=== PATIENT | female | born 1975 | race Caucasian/White ===

== ENCOUNTER → 2019-10-09 | Outpatient (CLI) | payer OTHER ==
[~2019-10-09] MED LIST: ESCI10 PO; HYDMOR2 PO; IBUP600 PO; LEVFLO500 PO; MEDR150I IM; METO10 PO; OXYACE5T PO; OXYC5 PO; PROM25S PR; RXHYDMOR2 PO; RXOXYACE PO; RXPROM25 PO; SERT100 PO; TAMS.4ER PO; TRAZ100 PO
== END | disposition home or self-care (01) ==
LOC: LAB 10:23 → LAB SHORT 10:23
DX: M54.5 Low back pain (principal)
CPT/HCPCS: 87086

== ENCOUNTER → 2020-01-01 | Outpatient (CLI) | payer OTHER | LOC: LAB 11:25 → LAB SHORT 11:25 | DX: R30.0 Dysuria (principal) | CPT/HCPCS: 87077; 87086; 87186 ==

== ENCOUNTER 2022-12-27 00:58 | Day surgery (SDC) | payer OTHER ==
[~2022-12-27 00:58] MED LIST changes: +AMBIEN10 MG PO; +LATUDA80 M1 PO
[2022-12-27 10:26] VITALS: BP 113/63
== END 2022-12-27 11:19 | disposition home or self-care (01) ==
LOC: ATC 00:58
DX: D50.9 Iron deficiency anemia, unspecified (principal); Z98.84 Bariatric surgery status
CPT/HCPCS: 96365; J2916

== ENCOUNTER 2023-01-03 02:46 | Day surgery (SDC) | payer OTHER ==
[2023-01-03 10:13] VITALS: BP 110/65
== END 2023-01-03 11:17 | disposition home or self-care (01) ==
LOC: ATC 02:46
DX: D50.8 Other iron deficiency anemias (principal); Z98.84 Bariatric surgery status
CPT/HCPCS: 96365; J2916

== ENCOUNTER 2023-03-10 18:28 | Inpatient (IN) | payer OTHER ==
[~2023-03-10] VITALS: Ht 170.2 cm; Wt 95.9 kg
[~2023-03-10 18:28] MED LIST changes: -Budeprion Xl300 MG PO; -ONDA4 PO
[2023-03-10] MEDS ORDERED: Budeprion Xl300 MG PO (18:36)
[2023-03-10 19:09] LABS: BASOPHILS ABSOLUTE AUTO 0.01 K/mm3 (0.00-0.23); BASOPHILS PERCENT AUTO 0 % (0-2); EOSINOPHILS ABSOLUTE AUTO 0.01 K/mm3 (0.00-0.68); EOSINOPHILS PERCENT AUTO 0 % (0-6); Hematocrit 35.1 % (33.0-51.0); Hemoglobin 11.1 g/dL (11.5-16.0); IMMATURE GRAN ABSOLUTE AUTO 0.02 K/mm3 (0.00-0.10); IMMATURE GRAN PERCENT AUTO 0 % (0-1); LYMPHOCYTES ABSOLUTE AUTO 1.58 K/mm3 (0.84-5.20); LYMPHOCYTES PERCENT AUTO 15 % (21-46); MONOCYTES ABSOLUTE AUTO 1.17 K/mm3 (0.16-1.47); MONOCYTES PERCENT AUTO 11 % (4-13); Mean Corpuscular HGB 25.4 pg (26.0-34.0); Mean Corpuscular HGB Conc 31.6 g/dL (31.5-36.5); Mean Corpuscular Volume 80 fL (80-100); Mean Platelet Volume 10.2 fL (9.1-12.4); NEUTROPHILS ABSOLUTE AUTO 7.64 K/mm3 (1.96-9.15); NEUTROPHILS PERCENT AUTO 73 % (41-73); Platelet Count 308 K/mm3 (150-400); RDW Coefficient Variation 21.3 % (11.7-14.2); RDW Standard Deviation 62.2 fL (35.1-46.3); Red Blood Cell Count 4.37 M/mm3 (3.80-5.20); White Blood Cell Count 10.43 K/mm3 (4.00-11.30)
[2023-03-10 19:13] LABS: Albumin, Blood 2.6 g/dL (3.4-5.0); Albumin/Globulin Ratio 0.8 (0.8-1.8); Bilirubin, Total 0.4 mg/dL (0.1-1.0); Bun/Creatinine Ratio 21.7 (12.0-20.0); Calcium, Blood 8.5 mg/dL (8.5-10.1); Creatinine, Blood 0.6 mg/dL (0.40-1.00); Globulin, Blood 3.3 g/dL (2.2-4.0); Potassium, Blood 3.8 mmol/L (3.5-5.5); Total Protein, Blood 5.9 g/dL (6.4-8.2)
[2023-03-10 19:15] LABS: Source, Urine Clean Catch
[2023-03-10 19:31] LABS: Appearance, Urine Hazy (Clear); Blood, Urine 4+ (Neg); Color, Urine Yellow (P-Yellow); Glucose Qualitative, Urine Neg (Neg); Ketones, Urine Neg (Neg); Leukocyte Esterase, Urine 1+ (Neg); Nitrite, Urine Neg (Neg); Protein, Urine 2+ (Neg); Urobilinogen, Urine 1+ (Normal)
[2023-03-10 19:43] LABS: Bilirubin, Urine 1+ (Neg)
[2023-03-10 19:46] LABS: Amorphous Light (0-Heavy); Bacteria Many /hpf; Mucus Heavy (0-Heavy); Red Blood Cells, Urine 0-2 /hpf (0-2); Squamous Epithelial Cells Many /hpf (Few)
[2023-03-10 19:47] LABS: Calcium Oxalate Crystals Many /hpf
[2023-03-10 23:55] VITALS: BP 114/77
[2023-03-11 02:28] VITALS: BP 102/62
[2023-03-11 04:52] LABS: BASOPHILS PERCENT AUTO 0 % (0-2); EOSINOPHILS ABSOLUTE AUTO 0.02 K/mm3 (0.00-0.68); EOSINOPHILS PERCENT AUTO 0 % (0-6); Hematocrit 30.3 % (33.0-51.0); Hemoglobin 9.3 g/dL (11.5-16.0); IMMATURE GRAN ABSOLUTE AUTO 0.03 K/mm3 (0.00-0.10); IMMATURE GRAN PERCENT AUTO 0 % (0-1); LYMPHOCYTES ABSOLUTE AUTO 1.68 K/mm3 (0.84-5.20); LYMPHOCYTES PERCENT AUTO 24 % (21-46); MONOCYTES ABSOLUTE AUTO 0.84 K/mm3 (0.16-1.47); MONOCYTES PERCENT AUTO 12 % (4-13); Mean Corpuscular HGB Conc 30.7 g/dL (31.5-36.5); Mean Corpuscular Volume 82 fL (80-100); Mean Platelet Volume 10.4 fL (9.1-12.4); NEUTROPHILS ABSOLUTE AUTO 4.54 K/mm3 (1.96-9.15); NEUTROPHILS PERCENT AUTO 64 % (41-73); Platelet Count 236 K/mm3 (150-400); RDW Standard Deviation 61.8 fL (35.1-46.3); Red Blood Cell Count 3.72 M/mm3 (3.80-5.20); White Blood Cell Count 7.11 K/mm3 (4.00-11.30)
--- NOTE | 2023-03-11 05:00 | NUR ---
SHIFT SUMMARY PT A&OX4 AND PLEASANT. PT ARRIVED FORM ED AT APPROXIMATLY 2315. PT ORIENTED TO ROOM AND EDUCATED ON POSSIBLE SOURCES OF IGGNITION AND FIRE DANGERS. PT CONTINUES TO HAVE RLQ PAIN AND NAUSEA AND WAS MEDICATED PER EMAR. PT WAS ABLE TO GET SEVERAL HOURS OF UNITERUPPTED SLEEP. PT NPO FOR GASTRO CONSULT AND POSSIBLE PROCEDURE. INDEPENDENT IN ROOM. VSS. BED IN LOWEST POSITION AND CALL LIGHT IN REACH.
[2023-03-11 05:13] LABS: Albumin, Blood 2.1 g/dL (3.4-5.0); Albumin/Globulin Ratio 0.8 (0.8-1.8); Bilirubin, Total 0.5 mg/dL (0.1-1.0); Bun/Creatinine Ratio 17.7 (12.0-20.0); Calcium, Blood 7.9 mg/dL (8.5-10.1); Creatinine, Blood 0.68 mg/dL (0.40-1.00); Globulin, Blood 2.8 g/dL (2.2-4.0); Potassium, Blood 3.5 mmol/L (3.5-5.5); Total Protein, Blood 4.9 g/dL (6.4-8.2)
[2023-03-11 07:38] VITALS: BP 100/62
[2023-03-11 09:28] LABS: Percent Saturation 8.4 % (15.0-50.0)
[2023-03-11 15:29] VITALS: BP 112/67
[2023-03-11 19:34] VITALS: BP 144/60
--- NOTE | 2023-03-11 20:31 | NUR ---
CALLED DR MEJIA 0630 TO NOTIFY THAT PT UNABLE TO TOLERATE PO INTAKE WITHOUT EMISIS. ALSO THAT PT REQ INCREASE OF OXYCODONE, THAT SHE IS USED TO TAKING 30MG AT A TIME WHEN SHE HAS KIDNEY STONES. DECIDED WITH DILAUDID ON BOARD THAT WE CAN USE THAT AND NOT INCREASE THE OXY. NEW ORDER FOR IVF TO BE STARTED/
--- NOTE | 2023-03-11 20:33 | NUR ---
2800- DR ORTEGA AT BEDSIDE TO EVALUATE PT AND DISCUSS PLAN FOR COLONOSCOPY TOMORROW. COLON PREP TONIGHT AND AM PROCEDURE. NPO AFTER MIDNIGHT
--- NOTE | 2023-03-11 20:35 | NUR ---
SUMMARY- PT UNABLE TO TOLERATE PO INTAKE, EMISIS ALMOST IMMEDIATELY IF FLUIDS MORE THAN 100CC. PT STATES PAIN CONSTANT OVER ENTIRE ABB, SHARP RLQ RADIATING INTO RIGHT. REQ DILAUDID APPROX Q2, ZOFRAN Q4. HAD EMESIS APPROX 4-6 TIMES TODAY. ONLY ABLE TO HOLD ICE CHIPS SPARINGLY. STAES BM YESTERDAY. ABD SOFT BUT TENDER. STATES PASSING FLATUS AND BT NORMOACTIVE. PLAN TO PASS NG FOR COLON PREP THIS PM FOR COLONOSCOPY IN AM. REPORTED ALL TO NOC RN
[2023-03-12] VITALS (41 sets, daily range): BP systolic 90–141; BP diastolic 58–105
[2023-03-12 04:45] LABS: Hematocrit 29.7 % (33.0-51.0); Hemoglobin 9.4 g/dL (11.5-16.0); Mean Corpuscular HGB 25.8 pg (26.0-34.0); Mean Corpuscular HGB Conc 31.6 g/dL (31.5-36.5); Mean Corpuscular Volume 81 fL (80-100); Mean Platelet Volume 10.4 fL (9.1-12.4); Platelet Count 223 K/mm3 (150-400); RDW Coefficient Variation 20.5 % (11.7-14.2); RDW Standard Deviation 60.9 fL (35.1-46.3); Red Blood Cell Count 3.65 M/mm3 (3.80-5.20); White Blood Cell Count 9.23 K/mm3 (4.00-11.30)
--- NOTE | 2023-03-12 07:38 | NUR ---
SUMMARY PLACED #14 SUMP FOR GOLYTE @ 2044.PT TOLERANCE FAIR,GAGGING DURING AND AFTER INITIALLY PLACED. I CALLED DR AND RECIEVED ORDERS FOR CHLORASEPTIC SPRAY WHICH PT REPORTED EFFECTIVE.T/O ADMIT, PT HAS REQUESTED AND RECEIVED BOTH DILAUDID IV AND PO PAIN MEDS.ALSO RECEIVING OCC ZOFRAN WHICH PT LATER REPORTED NAUSEA IMPROVED ACCEPT WHEN ATTEMPTING TO GET DOWN GOLYTELY.WHILE WAITING FOR CONFIRMATION FOR NG PLACEMENT,I RECEIVED OK FROM DR BAIRD TO TRY ORAL GOLYTE UNTIL CONFIRMATION OBTAINED. PT UNABLE TO TOLERATE DUE TO BOTH REPORT OF IMMEDIATE NAUSEA AND DUE TO GASTRIC SLEEVE SURGERY IN JULY.PT VERB MAX SHE CAN SAFELY TAKE IS ONLY 1 CUP PER HOUR.I ADVISED DR BAIRD OF THIS AND WAS INSTRUCTED TO DO WHAT WE CAN,ALSO SPOKE WITH FRUIT DUMPERCRISTINA SANTIZO WHO INSTRUCTED ME TO WAIT ON CALLING GI UNTIL EARLY AM TO LET THEM KNOW OF DIFF WITH PREP.ONCE CONFIRMATION WAS RECEIVED,PT AGREED TO ALLOW ME TO GIVE 50 ML PER NG TO START AND AFTER 20 ML IN.PT IMMEDIATELY SAID SHE CAN NOT TOLERATE IT.I CALLED DR BLACKWELL'S CELL AND MESSAGE LEFT TO PLASES CONTAT US REGARDING INABILITY TO FOLLOW THROUGH ON PT SCHEDULED FOR SCOPE.AGAIN FRUIT DUMPER NOTIFIED.PT VERB NAUSEA IMPROVED AND HAVE NG TO SX TO OPEN IF NEED.HAVE NOT HEARD FROM YET. CONFIRMATION OF TUBE PLACEMENT WAS RECEIVED,PT REQUESTED
--- NOTE | 2023-03-12 15:30 | NUR ---
PT COMPLETED BOWEL PREP, SURPREP, 960 ML VIA PEG TUBE SUCCESSFULLY COMPLETED AT 1330, AND NPO SINCT 1400 FROM SIPS OF CLEARS. PT'S BOWEL RUNNING CLEAR.
--- NOTE | 2023-03-12 16:08 | NUR ---
History, Chart, Medications and Allergies reviewed before start of procedure.PRE OP TEACHING DONE.CONFIRMED PROCEDURE
--- NOTE | 2023-03-12 16:43 | NUR ---
03/12/23 1643 Sally Grace HISTORY, CHART, MEDICATIONS AND ALLERGIES REVIEWED BEFORE START OF PROCEDURE. PATIENT CONFIRMS NPO STATUS AND AGREES WITH SCHEDULED PROCEDURE. 3-LEAD EKG REVIEWED WITH PHYSICIAN PRIOR TO START OF PROCEDURE. MONITOR INTACT WITH CONTINUOUS PULSE OXIMETRY,CAPNOGRAPHY, 3-LEAD EKG, INTERMITTENT BP. SUPPLEMENTAL O2 TO BE TITRATED THROUGHOUT PROCEDURE TO MAINTAIN O2 SATURATION ABOVE 90%. PATIENT DETERMINED TO BE ASA APPROPRIATE FOR PROPOFOL SEDATION PRIOR TO START OF PROCEDURE BY
--- NOTE | 2023-03-12 18:05 | NUR ---
PT RETURNED FROM COLONOSCOPY/ENDO WITH DR ORTEGA 1739- SAT AT THE [facility], AMBULATED SBA TO BATHROOM TO VOID. AWAKE AND ALERT. C/O PAIN 04/18, WILL MEDICATE. DR De Leon EXPLAINING TO PT THAT THEY FOUND A CANCER MASS IN COLON AND PLAN FOR [facility] TO CONSULT TO SEE IF SURGERY IS THE NEXT STEP. PT TEARFUL AND STATES FEELING OVERWHELMED. OFFERED PRAYER AND SUPPORT.
--- NOTE | 2023-03-12 18:11 | NUR ---
SUMMARY- PT A/O X4, COLONOSCOPY/ENDO COMPLETED THIS AFTERNOON 1600 DR ORTIZ. FOUND COLON CANCER AND SENT BX/SPOKE WITH PT ABOUT FINDINGS. PT IS TEARFUL AND FEARFUL. PLAN FOR [facility] CONSULT WITH LIKELY SURGERY IN THE NEXT FEW DAYS. PT OK TO DRINK CLEARS. CONT WITH DILAUDID AND OXY FOR PAIN AND ZOFRAN FOR NAUSEA.
[2023-03-13 00:23] VITALS: BP 119/70
[2023-03-13 04:38] VITALS: BP 107/59
[2023-03-13 04:59] LABS: Hematocrit 27.2 % (33.0-51.0); Hemoglobin 8.6 g/dL (11.5-16.0); Mean Corpuscular HGB 25.4 pg (26.0-34.0); Mean Corpuscular HGB Conc 31.6 g/dL (31.5-36.5); Mean Corpuscular Volume 80 fL (80-100); Platelet Count 236 K/mm3 (150-400); RDW Coefficient Variation 20.2 % (11.7-14.2); RDW Standard Deviation 58.6 fL (35.1-46.3); Red Blood Cell Count 3.39 M/mm3 (3.80-5.20); White Blood Cell Count 5.24 K/mm3 (4.00-11.30)
[2023-03-13 06:04] LABS: Bun/Creatinine Ratio 10.7 (12.0-20.0); Calcium, Blood 7.9 mg/dL (8.5-10.1); Creatinine, Blood 0.56 mg/dL (0.40-1.00)
--- NOTE | 2023-03-13 06:06 | NUR ---
SHIFT SUMMARY; PTS ABD WAS VERY PAINFUL LAST NIGHT. NOTIFIED DR. BAIRD WHO THEN ORDERED A TRAUMA PROGRAM MANAGER PUMP OF DILAUDID THIS AM. THE PT NOW STATES THAT HER PAIN IS MORE MANAGABLE. THE PT IS AXO X4 AND INDEPENDENT TO THE BATHROOM. THE PT OTHERWISE DENIES ANY SOB, CHEST PAIN/PRESSURE. THE PT IS TOLERATING CLEAR LIQUIDS. CURRENTLY THE PT IS RESTING IN BED WITH THE BED IN THE LOWEST POSITION AND THE CALL LIGHT AT BEDSIDE.
--- NOTE | 2023-03-13 06:23 | NUR ---
REGULATORY ANALYST PUMP SET UP AND VERIFIED WITH EVIE BENSON RN.
--- NOTE | 2023-03-13 09:27 | NUR ---
RN NOTE. MD CONSULT NOT CALLED IN PER V.O. FROM DR MEJIA. PT REQUESTING TO LEAVE SO SHE CAN GO TO [facility]. SHE SAID SHE HAS SOMEONE WHO CAN GIVE HER A RIDE SO SHE IS NOT DRIVING.
[2023-03-13] MEDS ORDERED: ONDA4 PO (10:39)
[2023-03-13] MEDS ORDERED: OXYC5 PO (10:40)
--- NOTE | 2023-03-13 11:19 | NUR ---
RN NOTE MS URBANO IS ALERT, ORIENTATED X4. ON DIATHERMY EQUIPMENT REPAIRER DILAUDID FOR GENERALISED ABDOMINAL PAIN MOSTLY IN RLQ. ALSO REQUIRING OXY PO TO CONTROL PAIN. WITH DIATHERMY EQUIPMENT REPAIRER AND OXY SHE SAID THAT HER PAIN IS UNDER CONTROL. C/O MILD NAUSEA THIS AM, GIVEN ZOFRAN 4MG IV WHICH HELPED. R A/C PIV LEAKED WAS REMOVED AND RUE POWERGLIDE WAS PLACED BY TRINIDAD EVANS. RECEIVING DIATHERMY EQUIPMENT REPAIRER AND POTASSIUM REPLACEMENTS. PT WOULD LIKE TO GET A SURGERY CONSULT AND POSSIBLE SURGERY UP IN [place] WHERE SHE HAS GOOD FAMILY SUPPORT AND PREFERS TO BE DISCHARGED FROM [facility]. SHE VERBALISED UNDERSATNDING OF WRITTEN AND VERBAL DISCHARGE INSTRUCTIONS. SHE WAS GIVEN PAPER SCRIPT FOR OXYCODONE. SHE HAS BEEN ADVISED NOT TO DRIVE D/T NARCOTICS AND MEDICAL CONDITION, SHE AGREED AND VERBALISED UNDERSTANDING. SHE SAID SHE IS WAITING FOR HER MOTHER IN LAW TO PICK HER UP. BED LOW, CALL LIGHT IN REACH.
--- NOTE | 2023-03-13 13:09 | NUR ---
PT DISCHARGED HOME AT 1215HRS. POWER GLIDE REMOVED INTACT. MOTHER IN LAW HERE TO DRIVE PT FOR DISCHARGE. W/C ESCORT TO THE FRONT ENTRANCE TO MEET [facility]. PT HAS NO NEW CONCERNS OR COMPLAINTS ON DISCHARGE.
== END 2023-03-13 12:23 | disposition home or self-care (01) | DRG 395 ==
LOC: ER 18:28 → MEDS 18:29 → ER 21:22 → MEDS 21:50 → ER 21:50 → MEDS 21:50 → ENPENDDIS 03-13 10:18 → MEDS 03-13 12:23
PROVIDERS: Family Medicine; Internal Medicine; Student in an Organized Health Care Education/Training Program; ADMIT Internal Medicine
PROC: 0DH67UZ Insertion of Feeding Device into Stomach, Via Natural or Artificial Opening (ICD-10-PCS; principal; 2023-03-11)
PROC: 0DBK8ZX Excision of Ascending Colon, Via Natural or Artificial Opening Endoscopic, Diagnostic (ICD-10-PCS; 2023-03-12)
PROC: 0DBP8ZX Excision of Rectum, Via Natural or Artificial Opening Endoscopic, Diagnostic (ICD-10-PCS; 2023-03-12)
PROC: 0DBL8ZX Excision of Transverse Colon, Via Natural or Artificial Opening Endoscopic, Diagnostic (ICD-10-PCS; 2023-03-12)
PROC: 0DBN8ZX Excision of Sigmoid Colon, Via Natural or Artificial Opening Endoscopic, Diagnostic (ICD-10-PCS; 2023-03-12)
PROC: 0W3P8ZZ Control Bleeding in Gastrointestinal Tract, Via Natural or Artificial Opening Endoscopic (ICD-10-PCS; 2023-03-12)
PROC: 0DB98ZX Excision of Duodenum, Via Natural or Artificial Opening Endoscopic, Diagnostic (ICD-10-PCS; 2023-03-12 16:00)
PROC: 0DB78ZX Excision of Stomach, Pylorus, Via Natural or Artificial Opening Endoscopic, Diagnostic (ICD-10-PCS; 2023-03-12 16:00)
PROC: 0DB68ZX Excision of Stomach, Via Natural or Artificial Opening Endoscopic, Diagnostic (ICD-10-PCS; 2023-03-12 16:00)
DX: K63.89 Other specified diseases of intestine (principal); K63.5 Polyp of colon; D50.9 Iron deficiency anemia, unspecified; F41.9 Anxiety disorder, unspecified; R93.89 Abnormal findings on diagnostic imaging of other specified body structures; M54.9 Dorsalgia, unspecified; F32.A Depression, unspecified; K57.30 Diverticulosis of large intestine without perforation or abscess without bleeding; Z98.84 Bariatric surgery status; Z87.442 Personal history of urinary calculi; Z88.5 Allergy status to narcotic agent; Z91.013 Allergy to seafood; Z79.899 Other long term (current) drug therapy
CPT/HCPCS: 36415; 71045; 74177; 80048; 80053; 81001; 81025; 82378; 82728; 83540; 83550; 83690; 85025; 85027; 87077; 87086; 87186; 88305; 88342; 93005; 93010; 96365; 96366; 96374-59; 96375; 96376; 99285-25; A9270; C1751; G0378; J1170; J2250; J2405; J2704; J2765; J2916; J3480; J7030; J7120; Q9967

== ENCOUNTER → 2023-03-10 | Outpatient (CLI) | payer OTHER ==
[~2023-03-10] MED LIST changes: +Budeprion Xl300 MG PO; +ONDA4 PO
== END ==
LOC: LAB SHORT 17:20 → LAB 17:20
DX: R30.0 Dysuria (principal)
CPT/HCPCS: 87077; 87086; 87186

== ENCOUNTER 2025-09-08 07:11 | Day surgery (SDC) | payer OTHER ==
[~2025-09-08 07:11] MED LIST changes: +Budeprion Xl300 MG PO; +ONDA4 PO; +Sod Ferric Gluc Complx/Sucrose 125 MG in NS 100 ML IV SCH
[2025-09-08 07:31] VITALS: BP 127/85
[2025-09-08] MEDS ORDERED: VITAMIN D5000 UNIT PO (08:19)
[2025-09-08] MEDS ORDERED: DESV50 PO (08:19)
[2025-09-08] MEDS ORDERED: DIAZ5 PO (08:20)
[2025-09-08] MEDS ORDERED: MULVITA PO (08:21)
[2025-09-08] MEDS ORDERED: ALLEGRA ALLERG180 MG PO (08:21)
[2025-09-08] MEDS ORDERED: ESZO1 PO (08:23)
== END 2025-09-08 08:30 | disposition home or self-care (01) ==
LOC: ATC 07:11
DX: D50.9 Iron deficiency anemia, unspecified (principal); K91.2 Postsurgical malabsorption, not elsewhere classified; K44.9 Diaphragmatic hernia without obstruction or gangrene; K21.9 Gastro-esophageal reflux disease without esophagitis; I10 Essential (primary) hypertension; E66.811 Obesity, class 1; E78.00 Pure hypercholesterolemia, unspecified; Z68.34 Body mass index [BMI] 34.0-34.9, adult; Z79.899 Other long term (current) drug therapy; Z88.5 Allergy status to narcotic agent; Z90.49 Acquired absence of other specified parts of digestive tract; Z98.84 Bariatric surgery status
CPT/HCPCS: J2916